=== PATIENT | male | born 1975 | race Two or more races ===

== ENCOUNTER 2018-06-23 18:31 | Emergency (ER) | payer OTHER ==
[2018-06-23 18:48] VITALS: BP 161/93
--- NOTE | 2018-06-23 19:25 | ER Document Report ---
ED Hand/Wrist Injury - General Chief Complaint: Finger Injury Stated Complaint: FINGER INJURY Time Seen by Provider: 06/23/18 18:52 Mode of Arrival: Ambulatory Information source: Patient Notes: 43-year-old male presented to ED for complaint of injury to the right hand last week. She he states he [facility] today due to pain swelling and warmth of the right hand second finger at the MCP. He states that at the [facility] they told him that he had a piece of metal in his hand where he hit one hammer on another hammer a week ago. He states he received a injection of Rocephin 1 g and a tetanus shot while at the bed [facility] and then was sent to the ED for the metal in his hand. Patient is alert and oriented respirations regular and unlabored speaking in full sentences pupils equal and react to light and able to walk with a even steady gait. Patient does speak Nepali he and his friend stated he wanted his friend to translate for him. Patient does speak some Niuean and is able to understand some of what I say but wanted his friend to translate what was said. TRAVEL OUTSIDE OF THE [place] IN LAST 30 DAYS: No - HPI Injury to: Index finger - Right hand Onset: Last week Where: Work Timing: Still present Quality of pain: Throbbing Severity: Moderate Pain Level: 2 Context: Other - States he was hitting one hammer with another hammer when it has caused a SPARC which went into his hand causing a small laceration a week ago. States it was getting better and then started hurting again a couple days ago and started swelling. - Related Data Allergies/Adverse Reactions: No Known Allergies Allergy (Unverified 06/23/18 18:39) Past Medical History - General Information source: Patient - Social History Smoking Status: Never Smoker Cigarette use (# per day): No Chew tobacco use (# tins/day): No Smoking Education Provided: No Frequency of alcohol use: Social Drug Abuse: None Occupation: Construction Lives with: Friend Family History: Reviewed & Not Pertinent Patient has suicidal ideation: No Patient has homicidal ideation: No - Past Medical History Cardiac Medical History: Reports: None Pulmonary Medical History: Reports: None EENT Medical History: Reports: None Neurological Medical History: Reports: None Endocrine Medical History: Reports: None Renal/ Medical History: Reports: None Malignancy Medical History: Reports None GI Medical History: Reports: None Musculoskeletal Medical History: Reports None Skin Medical History: Reports None Psychiatric Medical History: Reports: None Traumatic Medical History: Reports: None Infectious Medical History: Reports: None Surgical Hx: Negative Past Surgical History: Reports: None - Immunizations Immunizations up to date: Yes Hx Diphtheria, Pertussis, Tetanus Vaccination: Yes - 06/23/2018 at [facility] Review of Systems - Review of Systems Constitutional: No symptoms reported EENT: No symptoms reported Cardiovascular: No symptoms reported Respiratory: No symptoms reported Gastrointestinal: No symptoms reported Genitourinary: No symptoms reported Male Genitourinary: No symptoms reported Musculoskeletal: Other - Pain and mild swelling to the right index finger MCP joint. Skin: No symptoms reported Hematologic/Lymphatic: No symptoms reported Neurological/Psychological: No symptoms reported -: Yes All other systems reviewed and negative Physical Exam - Vital signs Vitals: Temp Pulse Resp BP Pulse Ox 97.9 F 58 L 16 161/93 H 99 06/23/18 18:47 06/23/18 18:47 06/23/18 18:47 06/23/18 18:47 06/23/18 18:47 Interpretation: Normal - General General appearance: Appears well, Alert - HEENT Head: Normocephalic, Atraumatic Eyes: Normal Pupils: PERRL - Respiratory Respiratory status: No respiratory distress Chest status: Nontender Breath sounds: Normal Chest palpation: Normal - Cardiovascular Rhythm: Regular Heart sounds: Normal auscultation Murmur: No - Abdominal Inspection: Normal Distension: No distension Bowel sounds: Normal Tenderness: Nontender Organomegaly: No organomegaly - Back Back: Normal, Nontender - Extremities General upper extremity: Normal ROM General lower extremity: Normal inspection, Nontender, Normal color, Normal ROM , Normal temperature, Normal weight bearing. No: Alexis's sign Hand: Tender, No evidence of human bite, No evidence of FB, Swelling - Animal swelling, Other - Very mild warmth and erythema to the right MCP of second finger. No: Abrasion, Deformity, Dislocation, Ecchymosis, Instability, Laceration, Nail injury - Neurological Neuro grossly intact: Yes Cognition: Normal Orientation: AAOx4 [place] Coma Scale Eye Opening: Spontaneous [place] Coma Scale Verbal: Oriented [place] Coma Scale Motor: Obeys Commands [place] Coma Scale Total: 15 Speech: Normal Motor strength normal: LUE, RUE, LLE, RLE Sensory: Normal - Psychological Associated symptoms: Normal affect, Normal mood - Skin Skin Temperature: Warm Skin Moisture: Dry Skin Color: Normal Skin irregularity: negative: Abscess Location of irregularity: Extremities - Right second finger MCP Character of irregularity: Erythematous - Very mild Irregularity with: Warmth - Very mild Course - Re-evaluation Re-evalutation: 06/23/18 19:[address] Huffman for infected foreign body to right MCP index finger. He stated patient should be followed up with orthopedics on Tuesday for reassessment of the joint. He states the patient should be sent home on antibiotics. Consult to Dr. Pitt as he is the attending physician. He came and examined the finger and stated yes that was fine to send him home on Keflex. Patient was given instructions on elevation Epson salt soaks and Keflex for this injury and to follow-up with [facility] for surgery on Tuesday. - Vital Signs Vital signs: Temp Pulse Resp BP Pulse Ox 97.9 F 58 L 16 161/93 H 99 06/23/18 18:47 06/23/18 18:47 06/23/18 18:47 06/23/18 18:47 06/23/18 18:47 - Diagnostic Test Radiology reviewed: Image reviewed, Reports reviewed Discharge - Discharge Clinical Impression: foreign body in mcp right index finger , infection to right 2nd mcp hand Condition: Stable Disposition: HOME, SELF-CARE Additional Instructions: Infections You have an infection. This is due to bacteria, which can enter through any break in the skin, or even through an irritated hair follicle. Untreated, infections will usually worsen. Antibiotics are required. Usually, warm packs or warm soaks, and elevation of the infected area are recommended. You should start getting better within 24 to 36 hours. Most infections respond quickly to the right medication. Follow-up care is important, however, to check for abscess (boil) formation, unsuspected foreign body, or resistant infection. If you develop fever, chills, or if the area of infection is becoming rapidly more swollen or painful, call the doctor at once. You have a foreign body in your first joint of your second finger on your right hand. This area is now infected. You will be placed on antibiotics. You will need to call the orthopedic surgeon on Tuesday to be seen for removal of this foreign body. CEPHALEXIN: The antibiotic you've been prescribed is a member of the cephalosporin class. This type of antibiotic covers a wide variety of infections, including those of the skin, lungs, and urinary tract. It's useful for staph infections. This antibiotic is slightly similar to the penicillin family. In rare cases , a person who is allergic to penicillin will also be allergic to this medication. If you have had a severe allergic reaction to penicillin, and have not taken this antibiotic since that time, notify your doctor. Antibiotics which cover many germs ("broad spectrum" antibiotics) are more likely to cause diarrhea or "yeast" infections. Women prone to vaginal yeast problems may suffer an attack after taking this antibiotic. In infants, oral thrush (white spots "stuck" on the cheek) or yeast diaper rash may result. See your doctor if these problems occur. Call at once if you develop itching, hives , shortness of breath, or lightheadedness. Soap Cleansing Gently wash the wound daily using a mild soap (like Ivory, Phisoderm, Neutrogena). Use warm water, rubbing gently until all debris, ooze, and crusting have been washed from the wound. Allow to dry briefly (about 10 minutes) after cleaning. Repeat this cleansing at least three times a day for the first two days and then once or twice a day. Epsom Salt Soaks Soak the wound area in a container of warm epsom salt water. If you can't get the wound area into a bucket or finney, use a folded towel soaked in the epsom salt solution and apply to the area. Use clean hot tap water (about the temperature of a very warm bath), mixing in about one (1) teaspoon for every pint of water. Two gallon --> 16 teaspoons Epsom Salts One gallon --> 8 teaspoons Epsom Salts Two quarts --> 4 teaspoons Epsom Salts One quart --> 2 teaspoons Epsom Salts Soak the wound for about 20 minutes while gently moving it around in the water. Repeat this four (4) times a day. Antibiotic Ointment Protection Your wounds are such that dressing them is not practical or optional. After cleansing, you should apply a thin coating of antibiotic ointment ( Bacitracin, not Neosporin) to the wounds at least three times daily. This lessens infection risk, and may decrease the amount of scarring. Use a q-tip or dull butter knife, not your finger, to apply this ointment. Any debris or ooze which builds up in the ointment should be gently rubbed off with a sterile gauze pad. Harder crusting may need to be gently scrubbed off with a clean wash cloth with soap and warm water, perhaps applying a warm, wet wash cloth to the wound for ten minutes first. Development of redness, severe itching, or blistering may mean allergy to the ointment. See the doctor. FOLLOW-UP CARE: If you have been referred to a physician for follow-up care, call the physician s office for an appointment as you were instructed or within the next two days. If you experience worsening or a significant change in your symptoms, notify the physician immediately or return to the Emergency Department at any time for re-evaluation. Prescriptions: Cephalexin Monohydrate [Keflex 500 mg Capsule] 500 mg PO Q6H 5 Days capsule Forms: Elevated Blood Pressure Referrals: [facility] [Provider Group] - 06/27/18
--- NOTE | 2018-06-23 19:31 | RADIOLOGY REPORT (SQ) ---
EXAM DESCRIPTION: HAND RIGHT 3 VIEWS COMPLETED DATE/TIME: 06/23/2018 7:13 pm REASON FOR STUDY: infected 2nd mcp metal in finger COMPARISON: None. EXAM PARAMETERS: NUMBER OF VIEWS: Three views. TECHNIQUE: AP, lateral and oblique radiographic images acquired of the right hand. LIMITATIONS: None. FINDINGS: MINERALIZATION: Normal. BONES: No acute fracture or dislocation. No worrisome bone lesions. JOINTS: No effusion. SOFT TISSUES: 5 mm radiopaque foreign body in the dorsal soft tissues near the base of the 1st proxim al phalanx. OTHER: No other significant finding. IMPRESSION: NO FRACTURE.5 mm radiopaque foreign body in the dorsal soft tissues near the base of the 1st proximal phalanx. TECHNICAL DOCUMENTATION: JOB ID: [id number] [place]-72 2010 [employer]- All Rights Reserved Reading location - IP/workstation name: [email or web address]
== END 2018-06-23 19:45 | disposition home or self-care (01) ==
LOC: ER 18:31
DX: S69.91XA Unspecified injury of right wrist, hand and finger(s), initial encounter (principal); M79.644 Pain in right finger(s); M79.89 Other specified soft tissue disorders; W45.8XXA Other foreign body or object entering through skin, initial encounter; W27.8XXA Contact with other nonpowered hand tool, initial encounter
CPT/HCPCS: 99283